=== PATIENT | male | born 1985 | race Caucasian/White ===

== ENCOUNTER 2017-12-29 14:18 | Emergency (ER) | payer SELFPAY ==
[~2017-12-29] VITALS: Ht 172.7 cm; Wt 79.0 kg
[2017-12-29] MEDS ORDERED: SODIUM CHLORIDE 0.9% 1,000 ML IV ONE (15:30)
[2017-12-29] MEDS ORDERED: KETOROLAC 15MG/ML VIAL IV ONE (15:30)
[2017-12-29 16:09] LABS: BASOPHILS % 0.3 % (0.0-2.0); EOSINOPHILS % 0.1 % (0.0-5.0); HEMATOCRIT. 51.7 % (42.0-52.0); HEMOGLOBIN. 18.5 g/dL (14.0-18.0); LYMPHOCYTES % 22.5 % (20.0-50.0); MEAN CORPUSCULAR HEMOGLOBIN 32.2 pg (28.0-32.0); MEAN CORPUSCULAR VOLUME 89.7 fL (80.0-94.0); MEAN PLATELET VOLUME 10.1 fl (7.4-10.4); MONOCYTES % 6.6 % (2.0-8.0); NEUTROPHILS % 70.5 % (40.0-76.0); PLATELET 220 x1000/uL (130-400); RED BLOOD CELL COUNT 5.77 mill/uL (4.7-6.1); RED CELL DISTRIBUTION WIDTH 12.6 % (11.6-14.6)
[2017-12-29 16:12] LABS: CHLORIDE 102 mEq/L (98-107)
[2017-12-29 16:20] LABS: INR 1.1; PROTHROMBIN TIME 11.2 sec (9.4-11.6)
[2017-12-29] MEDS ORDERED: HYDROCODONE/ACETAMINOPHEN 5/325MG TABLET PO ONE (16:45)
[2017-12-29 19:15] VITALS: BP 131/81
== END 2017-12-29 20:58 | disposition home or self-care (01) ==
LOC: ER 14:18
DX: R07.9 Chest pain, unspecified (principal); R55 Syncope and collapse; N28.9 Disorder of kidney and ureter, unspecified
CPT/HCPCS: 36415; 71045; 80053; 83690; 83880; 84484; 85025; 85610; 85730; 93005; 96361; 96374; 99285; J1885; J7030; Z7610

== ENCOUNTER 2018-05-20 19:51 | Emergency (ER) | payer SELFPAY ==
[~2018-05-20] VITALS: Ht 175.3 cm; Wt 80.0 kg
[2018-05-20] MEDS ORDERED: SODIUM CHLORIDE 0.9% 1,000 ML IV ONE (20:33)
[2018-05-20] MEDS ORDERED: IBUPROFEN 600MG TABLET PO STA (20:33)
[2018-05-20 21:33] LABS: BASOPHILS % 0.6 % (0.0-2.0); EOSINOPHILS % 0.6 % (0.0-5.0); HEMATOCRIT. 50.6 % (42.0-52.0); HEMOGLOBIN. 18.1 g/dL (14.0-18.0); LYMPHOCYTES % 22.6 % (20.0-50.0); MEAN CORPUSCULAR HEMOGLOBIN 32.1 pg (28.0-32.0); MEAN CORPUSCULAR VOLUME 89.8 fL (80.0-94.0); MEAN PLATELET VOLUME 10.4 fl (7.4-10.4); MONOCYTES % 6.3 % (2.0-8.0); NEUTROPHILS % 69.9 % (40.0-76.0); PLATELET 205 x1000/uL (130-400); RED BLOOD CELL COUNT 5.64 mill/uL (4.7-6.1); RED CELL DISTRIBUTION WIDTH 12.4 % (11.6-14.6)
[2018-05-20 21:41] LABS: CHLORIDE 102 mEq/L (98-107)
[2018-05-20 21:44] LABS: CLARITY URINE CLEAR (CLEAR); COLOR URINE YELLOW (YELLOW); KETONES URINE NEGATIVE (NEGATIVE); LEUKOCYTE ESTERASE URINE NEGATIVE (NEGATIVE); NITRITE URINE NEGATIVE (NEGATIVE); OCCULT BLOOD URINE NEGATIVE (NEGATIVE); PH URINE 5.5 (4.5-8.0); PROTEIN URINE NEGATIVE (NEGATIVE); SPECIFIC GRAVITY URINE 1.017 (1.005-1.030); UROBILINOGEN URINE 0.2 E.U./dL (0.2-1.0)
[2018-05-20 21:53] LABS: ETHANOL BLOOD < 10 mg/dL
[2018-05-20 21:54] LABS: *AMPHETAMINES SCREEN URINE NEGATIVE (NEGATIVE); *BARBITURATES SCREEN URINE NEGATIVE (NEGATIVE); *BENZODIAZEPINES SCREEN URINE NEGATIVE (NEGATIVE); *COCAINE SCREEN URINE NEGATIVE (NEGATIVE); CANNABINOID URINE SCREEN NEGATIVE (NEGATIVE); METHADONE URINE SCREEN NEGATIVE (NEGATIVE); OPIATES URINE SCREEN NEGATIVE (NEGATIVE); PHENCYCLIDINE URINE SCREEN NEGATIVE (NEGATIVE)
[2018-05-20 23:04] VITALS: BP 133/83
== END 2018-05-20 23:13 | disposition home or self-care (01) ==
LOC: ER 21:52
DX: R55 Syncope and collapse (principal); R42 Dizziness and giddiness; R51 Headache; K21.9 Gastro-esophageal reflux disease without esophagitis
CPT/HCPCS: 36415; 70450; 80053; 80305; 81003; 85025; 93005; 96360; 96361; 99285; G0482; J7030

== ENCOUNTER 2018-10-10 01:23 | Emergency (ER) | payer SELFPAY ==
[~2018-10-10] VITALS: Ht 175.3 cm; Wt 77.0 kg
[2018-10-10] MEDS ORDERED: ONDANSETRON HCL 4MG/2ML INJ IV STA (02:24)
[2018-10-10] MEDS ORDERED: SODIUM CHLORIDE 0.9% 1,000 ML IV ONE ×2 (02:24→03:45)
[2018-10-10 02:39] LABS: BASOPHILS % 0.2 % (0.0-2.0); LYMPHOCYTES % 13.1 % (20.0-50.0); MEAN CORPUSCULAR HEMOGLOBIN 32.3 pg (28.0-32.0); MEAN PLATELET VOLUME 10.2 fl (7.4-10.4); MONOCYTES % 3.4 % (2.0-8.0); NEUTROPHILS % 83.3 % (40.0-76.0); PLATELET 227 x1000/uL (130-400); RED BLOOD CELL COUNT 5.55 mill/uL (4.7-6.1); RED CELL DISTRIBUTION WIDTH 12.4 % (11.6-14.6)
[2018-10-10 02:43] LABS: CLARITY URINE CLEAR (CLEAR); COLOR URINE YELLOW (YELLOW); KETONES URINE 3+ (NEGATIVE); LEUKOCYTE ESTERASE URINE NEGATIVE (NEGATIVE); NITRITE URINE NEGATIVE (NEGATIVE); OCCULT BLOOD URINE NEGATIVE (NEGATIVE); PH URINE 5.5 (4.5-8.0); PROTEIN URINE TRACE (NEGATIVE); SPECIFIC GRAVITY URINE 1.033 (1.005-1.030)
[2018-10-10 02:44] LABS: CHLORIDE 100 mEq/L (98-107)
[2018-10-10] MEDS ORDERED: KETOROLAC 30MG/ML VIAL IV ONE (03:45)
[2018-10-10] MEDS ORDERED: METOCLOPRAMIDE HCL 10MG/2ML VIAL IV ONE (03:45)
[2018-10-10 06:04] VITALS: BP 115/75
== END 2018-10-10 06:14 | disposition home or self-care (01) ==
LOC: ER 01:23
DX: N20.0 Calculus of kidney (principal); R11.10 Vomiting, unspecified; Z95.2 Presence of prosthetic heart valve
CPT/HCPCS: 36415; 80053; 81003; 85025; 96361; 96374; 96375; 99283; J1885; J2405; J2765; J7030

== ENCOUNTER 2018-10-12 01:32 | Emergency (ER) | payer SELFPAY ==
[~2018-10-12] VITALS: Ht 175.3 cm; Wt 75.0 kg
[2018-10-12] MEDS ORDERED: ONDANSETRON 4MG ODT PO ONE (04:00)
[2018-10-12] MEDS ORDERED: KETOROLAC 60MG/2ML VIAL IM ONE (04:00)
[2018-10-12 04:11] VITALS: BP 142/109
== END 2018-10-12 04:21 | disposition home or self-care (01) ==
LOC: ER 02:41
DX: I10 Essential (primary) hypertension (principal); R11.0 Nausea; R51 Headache; I11.9 Hypertensive heart disease without heart failure; Z98.890 Other specified postprocedural states
CPT/HCPCS: 96372; 99283; J1885; Q0162; Z7610

== ENCOUNTER 2025-05-18 07:07 | Emergency (ER) | payer SELFPAY ==
[~2025-05-18] VITALS: Ht 177.8 cm; Wt 78.0 kg
[2025-05-18 07:17] VITALS: O2SAT 99
[2025-05-18 08:40] LABS: BASOPHILS % 0.5 % (0.0-2.0); EOSINOPHILS % 0.5 % (0.0-5.0); HEMATOCRIT. 49.8 % (42.0-52.0); HEMOGLOBIN. 17.5 g/dL (14.0-18.0); LYMPHOCYTES % 25.6 % (20.0-50.0); MEAN PLATELET VOLUME 9.6 fl (7.4-10.4); MONOCYTES % 7.2 % (2.0-8.0); NEUTROPHILS % 66.2 % (40.0-76.0); PLATELET 213 x1000/uL (130-400); RED BLOOD CELL COUNT 5.56 mill/uL (4.7-6.1); RED CELL DISTRIBUTION WIDTH 12.3 % (11.6-14.6)
[2025-05-18] MEDS: MAGNESIUM/ALUMINUM HYDROXIDE/SIMETHICONE 30ML UDC PO ONE (08:55)
[2025-05-18 09:11] LABS: CREATININE 0.9 mg/dL (0.6-1.3)
[2025-05-18 09:13] LABS: UREA NITROGEN BLOOD 8 mg/dL (9-23)
[2025-05-18 09:16] LABS: ASPARTATE AMINOTRANSFERASE 20 IU/L (<34); BILIRUBIN DIRECT 0.3 mg/dL (<=3.0); BILIRUBIN TOTAL 1.3 mg/dL (0.1-1.0); PROTEIN TOTAL 7.9 g/dL (6.0-8.3)
[2025-05-18] MEDS ORDERED: OMEP20CA14 MT (09:19)
[2025-05-18 09:23] LABS: CLARITY URINE CLEAR (CLEAR); COLOR URINE YELLOW (YELLOW); GLUCOSE URINE NEGATIVE (NEGATIVE); KETONES URINE 2+ (NEGATIVE); LEUKOCYTE ESTERASE URINE NEGATIVE (NEGATIVE); NITRITE URINE NEGATIVE (NEGATIVE); OCCULT BLOOD URINE NEGATIVE (NEGATIVE); PH URINE 6.5 (4.5-8.0); PROTEIN URINE NEGATIVE (NEGATIVE); SPECIFIC GRAVITY URINE 1.013 (1.005-1.030); UROBILINOGEN URINE 0.2 E.U./dL (0.2-1.0)
[2025-05-18 09:39] VITALS: BP 152/98; PULSE 81; RESP 16; TEMP 36.9; O2SAT 99
== END 2025-05-18 09:58 | disposition home or self-care (01) ==
LOC: ER 07:07
DX: R07.89 Other chest pain (principal); I10 Essential (primary) hypertension; Z98.890 Other specified postprocedural states; Z79.899 Other long term (current) drug therapy
CPT/HCPCS: 36415; 80048; 80076; 81003; 85025; 93005; 99284